=== PATIENT | female | born 2000 | race Caucasian/White ===

== ENCOUNTER 2022-03-09 11:58 | Emergency (ER) | payer OTHER ==
[~2022-03-09] VITALS: Ht 157.5 cm; Wt 63.5 kg
[2022-03-09 13:28] LABS: BASOPHILS ABSOLUTE AUTO 0.04 K/mm3 (0.00-0.23); BASOPHILS PERCENT AUTO 1 % (0-2); EOSINOPHILS ABSOLUTE AUTO 0.04 K/mm3 (0.00-0.68); EOSINOPHILS PERCENT AUTO 1 % (0-6); Hematocrit 38.7 % (33.0-51.0); Hemoglobin 13.1 g/dL (11.5-16.0); IMMATURE GRAN ABSOLUTE AUTO 0.01 K/mm3 (0.00-0.10); IMMATURE GRAN PERCENT AUTO 0 % (0-1); LYMPHOCYTES ABSOLUTE AUTO 2.62 K/mm3 (0.84-5.20); LYMPHOCYTES PERCENT AUTO 36 % (21-46); MONOCYTES ABSOLUTE AUTO 0.42 K/mm3 (0.16-1.47); MONOCYTES PERCENT AUTO 6 % (4-13); Mean Corpuscular HGB 28.9 pg (26.0-34.0); Mean Corpuscular HGB Conc 33.9 g/dL (31.5-36.5); Mean Corpuscular Volume 85 fL (80-100); Mean Platelet Volume 9.5 fL (9.1-12.4); NEUTROPHILS PERCENT AUTO 57 % (41-73); Platelet Count 330 K/mm3 (150-400); RDW Coefficient Variation 12.1 % (11.7-14.2); RDW Standard Deviation 37.8 fL (35.1-46.3); Red Blood Cell Count 4.53 M/mm3 (3.80-5.20); White Blood Cell Count 7.23 K/mm3 (4.00-11.30)
[2022-03-09 14:10] LABS: Bilirubin, Total 0.4 mg/dL (0.1-1.0); Bun/Creatinine Ratio 10.6 (12.0-20.0); Calcium, Blood 9.5 mg/dL (8.5-10.1); Creatinine, Blood 0.66 mg/dL (0.40-1.00); Globulin, Blood 3.9 g/dL (2.2-4.0); Potassium, Blood 3.8 mmol/L (3.5-5.5); Total Protein, Blood 7.9 g/dL (6.4-8.2)
== END 2022-03-09 15:44 | disposition home or self-care (01) ==
LOC: ER 11:58
PROVIDERS: Physician Assistant
DX: N83.291 Other ovarian cyst, right side (principal)
CPT/HCPCS: 76830; 76856; 80053; 83690; 85025

== ENCOUNTER → 2024-08-13 | Outpatient (CLI) | payer OTHER | LOC: LAB SHORT 14:52 → LAB 14:52 | PROVIDERS: Family Medicine | DX: Z01.419 Encounter for gynecological examination (general) (routine) without abnormal findings (principal) | CPT/HCPCS: G0123 ==

== ENCOUNTER 2024-10-20 20:21 | Emergency (ER) | payer OTHER ==
[~2024-10-20] VITALS: Ht 160 cm; Wt 63.5 kg
[2024-10-20 20:50] VITALS: BP 159/100
[2024-10-20] MEDS ORDERED: AMOCLA875 PO (22:36)
== END 2024-10-20 22:53 | disposition home or self-care (01) ==
LOC: ER 20:21
DX: S61.052A Open bite of left thumb without damage to nail, initial encounter (principal); W54.0XXA Bitten by dog, initial encounter
CPT/HCPCS: 99283